=== PATIENT | female | born 1955 | race Caucasian/White ===

== ENCOUNTER → 2017-04-13 | Outpatient (CLI) | payer MEDICARE ==
--- NOTE | 2017-04-14 14:59 | MR ---
EXAMINATION TYPE: MR rumaine/lspine wo con DATE OF EXAM: 04/13/2017 1:50 PM COMPARISON: 12/23/2013 HISTORY: 61-year-old female with neck and low back pain. TECHNIQUE: Multiplanar, multisequence images of the cervical followed by the lumbar spine were obtain ed without IV contrast. FINDINGS: CERVICAL SPINE: No craniocervical junction abnormality, predental space widening, or prevertebral soft tissue swellin g. There is reversal of the normal cervical lordosis but with preserved alignment. Intervertebral discs are degenerated, desiccated, mild to moderately narrowed with large disc osteoph yte complexes. Corresponding ligamentum flavum thickening particularly at C4-C7 levels. Additional facet and uncovertebral joint degenerative changes present. Mild heterogeneity of marrow signal without suspicious bone marrow replacement. At C2-C3, mild facet degenerative change without spinal canal or neuroforaminal stenosis. At C3-C4, there is broad-based disc osteophyte complex with facet and uncovertebral joint degenerativ e change. This results in moderate right and mild left neuroforaminal stenosis with similar mild spin al canal stenosis. Minimal abutment of the ventral cord. At C4-C5, there is a large disc osteophyte complex with ligamentum flavum thickening as well as uncov ertebral joint and facet degenerative change. This results in a moderate bilateral neural foraminal s tenosis with moderate to severe spinal canal stenosis with a prominent indentation of both the dorsal and ventral cord, similar to prior. At C5-C6, discussed by complex with uncovertebral joint and facet degenerative change and ligamentum flavum thickening. There is abutment and indentation of both the dorsal and ventral cord with moderat e spinal canal stenosis. Moderate to severe left and mild to moderate right neuroforaminal stenosis. At C6/C7, disc ossified complex with vertebral joint and facet degenerative change as well as ligamen jay flavum thickening. Changes result in severe left and moderate right neuroforaminal stenosis with mild to moderate spinal canal stenosis, similar to prior. At C7-T1, there is facet degenerative change without spinal canal or neuroforaminal stenosis. No prevertebral or paravertebral soft tissue abnormality seen. No clear T2 cord signal abnormality. LUMBAR SPINE: Heterogeneous marrow signal without suspicious bone marrow replacement. There is ligamentum flavum fl avum thickening and facet degenerative change mid to lower lumbar spine. Alignment is maintained and vertebral body heights are preserved. Intervertebral discs are degenerated, desiccated, and show variable mild narrowing, more moderate in the upper lumbar spine. Disc bulging is present. Superior and inferior endplate Schmorl's node noted of T12. Conus medullaris is at the lower limits of normal opposite the L2 inferior endplate. At T12-L1, minimal right paracentral disc bulge without canal or foraminal stenosis. At L1-L2, and ligamentum flavum thickening without canal or foraminal stenosis. Minimal disc bulging is present. At L2-L3, there is diffuse disc bulge with ligamentum flavum thickening and mild facet degenerative c hange. There is slight indentation of the ventral thecal sac without significant spinal canal stenosi s. There is moderate bilateral neuroforaminal stenosis. At L3-L4, ligamentum flavum thickening and facet degenerative change. There is minimal bilateral infe rior foraminal narrowing without spinal canal stenosis. At L4-L5, diffuse disc bulge with ligamentum flavum thickening and facet degenerative change. Resulta nt moderate spinal canal stenosis with mild left greater than right neuroforaminal stenosis. At L5-S1, there is facet arthropathy with ligamentum flavum thickening and diffuse disc bulge. Change s result in mild right neuroforaminal stenosis without spinal canal stenosis. No prevertebral or paravertebral soft tissue abnormality seen. COMBINED IMPRESSION: CERVICAL SPINE: 1. Advanced disc/endplate degenerative change with uncovertebral joint and facet arthropathy as well as ligamentum flavum thickening, greatest from C4 through C7 levels. 2. There is overall moderate to severe spinal canal stenosis at C4-C5 with prominent indentation of b oth the dorsal and ventral cord, moderate at C5-C6, and mild to moderate at C6-C7. Mild at C3-C4. Ove rall canal stenoses are relatively similar to 2014. 3. Variable neuroforaminal stenoses as outlined above. 4. No suspicious myelopathic cord signal change. LUMBAR SPINE: 1. Moderate multilevel degenerative disc disease. Hypertrophic facet arthropathy and ligamentum flavu m thickening at multiple levels. 2. There is overall moderate narrowing of the spinal canal at L4-L5 with mild left greater than right neuroforaminal stenosis here. 3. At L2-L3, there is moderate bilateral neuroforaminal stenosis. Mild neural foraminal narrowing at L5-S1.
== END | disposition home or self-care (01) ==
LOC: RADMRIMAIN 12:42
PROVIDERS: ATTEND Psychiatry & Neurology Neurology
DX: M48.02 Spinal stenosis, cervical region (principal); M99.71 Connective tissue and disc stenosis of intervertebral foramina of cervical region; M46.92 Unspecified inflammatory spondylopathy, cervical region; M47.812 Spondylosis without myelopathy or radiculopathy, cervical region; M48.06 Spinal stenosis, lumbar region; M99.73 Connective tissue and disc stenosis of intervertebral foramina of lumbar region; M51.36 Other intervertebral disc degeneration, lumbar region; M46.96 Unspecified inflammatory spondylopathy, lumbar region; M48.8X6 Other specified spondylopathies, lumbar region; M24.28 Disorder of ligament, vertebrae; Z88.0 Allergy status to penicillin
CPT/HCPCS: 72141; 72148

== ENCOUNTER → 2017-06-12 | Outpatient (CLI) | payer MEDICARE ==
--- NOTE | 2017-06-13 08:43 | MM ---
Reason for exam: screening (asymptomatic). Last mammogram was performed 2 years and 2 months ago. History: Patient is postmenopausal. Benign left mammotome panel of the left breast, December 28, 2005. Physical Findings: A clinical breast exam by your physician is recommended on an annual basis and results should be correlated with mammographic findings. MG Screening Mammo w CAD Bilateral CC and MLO view(s) were taken. Prior study comparison: April 14, 2015, bilateral MG screening mammo w CAD. October 20, 2010, bilateral digital screening mammogram. The breast tissue is extremely dense which could obscure a lesion on mammography. Dense calcifications in the right breast, stable. Previous mammotome biopsy in the left breast. No significant changes when compared with prior studies. ASSESSMENT: Benign, BI-RAD 2 RECOMMENDATION: Routine screening mammogram of both breasts in 1 year.
== END | disposition home or self-care (01) ==
LOC: RADMAMWWP 15:22
PROVIDERS: ATTEND Internal Medicine
DX: Z12.31 Encounter for screening mammogram for malignant neoplasm of breast (principal)

== ENCOUNTER → 2019-07-15 | Outpatient (CLI) | payer MEDICARE ==
--- NOTE | 2019-07-17 07:29 | MM ---
Reason for exam: screening (asymptomatic). Last mammogram was performed 2 years and 1 month ago. History: Patient is postmenopausal. Benign left mammotome panel of the left breast, December 28, 2005. Physical Findings: A clinical breast exam by your physician is recommended on an annual basis and results should be correlated with mammographic findings. MG Screening Mammo w CAD Bilateral CC and MLO view(s) were taken. Prior study comparison: June 12, 2017, bilateral MG screening mammo w CAD. April 14, 2015, bilateral MG screening mammo w CAD. The breast tissue is extremely dense which could obscure a lesion on mammography. Previous mammotome biopsy in the left breast. No significant changes when compared with prior studies. ASSESSMENT: Benign, BI-RAD 2 RECOMMENDATION: Routine screening mammogram of both breasts in 1 year.
== END | disposition home or self-care (01) ==
LOC: RADMAMWWP 13:56
PROVIDERS: ATTEND Internal Medicine
DX: Z12.31 Encounter for screening mammogram for malignant neoplasm of breast (principal)
CPT/HCPCS: 77067

== ENCOUNTER → 2019-12-14 | Outpatient (CLI) | payer MEDICARE ==
--- NOTE | 2019-12-14 15:41 | US ---
EXAMINATION TYPE: US pelvis complete transvag DATE OF EXAM: 12/14/2019 COMPARISON: NONE CLINICAL HISTORY: R10.2 Pelvic pain. TECHNIQUE: Transvaginal (TV) and Transabdominal (TA) . Transabdominal sonographic images of the pel vis were acquired. Transvaginal sonographic images were medically necessary to better assess the fol lowing anatomy: Left ovary Date of LMP: Postmenopausal patient EXAM MEASUREMENTS: Uterus: 6.1 x 2.9 x 4.0 cm Endometrial Stripe: 0.3 cm Right Ovary: 1.9 x 1.0 x 1.0 cm Left Ovary: 5.2 x 3.3 x 3.1 cm 1. Uterus: Anteverted, hypoechoic lesion measuring 1.9 x 1.5 x 1.3 cm 2. Endometrium: wnl 3. Right Ovary: wnl 4. Left Ovary: enlarged, multiple cysts, innumerable calcifications 5. Bilateral Adnexa: wnl 6. Posterior cul-de-sac: wnl IMPRESSION: 1. Leiomyomatous change of the uterus. 2. Multiple left ovarian cysts. Calcifications noted as well which are nonspecific.
== END | disposition home or self-care (01) ==
LOC: RADUSWWP 14:33
PROVIDERS: ATTEND Internal Medicine
DX: N83.202 Unspecified ovarian cyst, left side (principal); N83.8 Other noninflammatory disorders of ovary, fallopian tube and broad ligament; D25.9 Leiomyoma of uterus, unspecified; Z88.0 Allergy status to penicillin
CPT/HCPCS: 76830; 76856

== ENCOUNTER 2020-08-27 14:48 | Emergency (ER) | payer MEDICARE ==
[2020-08-27 15:09] VITALS: TEMP 98.4
[2020-08-27] MEDS ORDERED: CIPROFLOXACIN HCL 500 MG TAB PO STA (15:31)
[2020-08-27] MEDS ORDERED: HYDROcodone/APAP 5-325MG 1 EACH TAB PO STA (15:34)
[2020-08-27] MEDS ORDERED: ACET/COD 300 MG/30 MG STARTER PACK 6 TAB BTL PO STA (17:01)
--- NOTE | 2020-08-27 17:05 | ED ---
General Adult HPI - General Chief complaint: ENT Stated complaint: ENT Time Seen by Provider: 08/27/20 15:13 Source: patient, RN notes reviewed, old records reviewed Mode of arrival: ambulatory Limitations: no limitations - History of Present Illness Initial comments: 64-year-old female patient presents to ED for evaluation of of abscess to a nterior aspect of left ear. Has been ongoing for 3 days. Patient reports that she had this before in the past. Also reports that she is having a little bit of mild headaches from this. She denies any fevers. Denies any other acute complaints. Systemic: Pt denies fatigue, fever/chills, rash. Pt denies weakness, night sweats, weight loss. Neuro: Pt denies headache, visual disturbances, syncope or pre-syncope. HEENT: Pt denies ocular discharge or irritation, rhinorrhea, pharyngitis or notable lymphadenopathy. Cardiopulmonary: Pt denies chest pain, SOB, heart palpitations, dyspnea on exert ion. Abdominal/GI: Pt denies abdominal pain, n/v/d. : Pt denies dysuria, burning w/ urination, frequency/urgency. Denies new onset urinary or bowel incontinence. MSK: Pt denies myalgia, loss of strength or function in extremities. Neuro: Pt denies new onset weakness, paresthesias. - Related Data Home Medications Medication Instructions Recorded Confirmed ALPRAZolam [Xanax] 0.5 mg PO TID PRN 04/19/15 04/21/15 HYDROcodone/APAP 10-325MG [Webster 1 each PO Q6H PRN 04/19/15 04/21/15 10] Morphine Sulfate [Morphine Sulfate 45 mg PO BID 04/19/15 04/21/15 ER] Previous Rx's Medication Instructions Recorded Ciprofloxacin HCl [Cipro] 500 mg PO Q12HR #20 day 08/27/20 Allergies Allergy/AdvReac Type Severity Reaction Status Date / Time Penicillins Allergy Unknown Verified 08/27/20 15:09 Childhood Review of Systems ROS Statement: Those systems with pertinent positive or pertinent negative responses have been documented in the HPI. ROS Other: All systems not noted in ROS Statement are negative. Past Medical History Past Medical History: No Reported History History of Any Multi-Drug Resistant Organisms: None Reported Additional Past Surgical History / Comment(s): ear surgery. neck. Past Psychological History: Anxiety, Depression Smoking Status: Current every day smoker Past Alcohol Use History: Rare Past Drug Use History: Marijuana General Exam - General Exam Comments Initial Comments: Constitutional: NAD, AOX3, Pt has pleasant affect. HEENT: NC/AT, trachea midline, neck supple, no lymphadenopathy. Posterior pharynx non erythematous, without exudates. 1x1 cm mildly fluctuant abscess to the anterior aspect of the left year. No cellulitis or streaking. Area clean incision drainage was attempted without any purulent drainage noted. TM pale marley bilaterally. Mucous membranes moist. Eyes PERRLA, EOM intact. There is no scleral icterus. No pallor noted. Cardiopulmonary: RRR, no murmurs, rubs or gallops, no JVD noted. Lungs CTAB in anterior and posterior gerber. No peripheral edema. Abdominal exam: Abdomen soft and non-distended. Abdomen non-tender to palpation in all 4 quadrants. Bowel sounds active in LLQ. No hepatosplenomegaly. No ecchymosis Neuro: CN II-XII intact. No nuchal rigidity. No raccon eyes, no marcelo sign, no hemotympanum. No cervical spinal tenderness. MSK Full active ROM in upper and lower extremities, 5/5 stregnth. Limitations: no limitations Course Vital Signs 08/27/20 08/27/20 15:06 17:10 Temperature 98.4 F Pulse Rate 100 80 Respiratory 20 16 Rate Blood Pressure 138/92 136/88 O2 Sat by Pulse 98 97 Oximetry Medical Decision Making - Medical Decision Making 64-year-old female patient proceeded for evaluation of left ear abscess. Patient vital signs are stable, afebrile. Physical exam displayed a approximately 1 x 1 cm Nacho fluctuant abscess. This was incised without any significant drainage. Patient was placed on ciprofloxacin and will be discharged with outpatient ENT follow-up. As well as primary care follow-up and return precautions. Case discussed and pt seen by Dr. John. Disposition Clinical Impression: Abscess Disposition: HOME SELF-CARE Condition: Stable Instructions (If sedation given, give patient instructions): Abscess Incision a nd Drainage (ED), Abscess (ED) Additional Instructions: Apply warm compresses to ear 3 times daily and use medication as prescribed. Follow up with ENT tomorrow. Return to ER with an worsening symptoms. Prescriptions: Ciprofloxacin HCl [Cipro] 500 mg PO Q12HR #20 day Is patient prescribed a controlled substance at d/c from ED?: No Referrals: Gregory Chicas MD [Primary Care Provider] - 1-2 days Joel Sanchez MD [STAFF PHYSICIAN] - 1-2 days Jose Elias Hernandez DO [Doctor of Osteopathic Medicine] - 1-2 days
[2020-08-27 17:14] VITALS: BP 136/88; PULSE 80; RESP 16
--- NOTE | 2020-08-28 10:00 | CDI ---
Dear Lyle Kim PA-C Please do addendum for Incision and drainage procedure note, required Thank you, Valeri Neil, Sand Operator If you have any questions, please contact Transplant Worker at [phone] [facility]
== END 2020-08-27 17:15 | disposition home or self-care (01) ==
LOC: EC 14:48
DX: H66.42 Suppurative otitis media, unspecified, left ear (principal); F41.9 Anxiety disorder, unspecified; F32.9 Major depressive disorder, single episode, unspecified; F17.200 Nicotine dependence, unspecified, uncomplicated; Z79.891 Long term (current) use of opiate analgesic; Z88.0 Allergy status to penicillin
CPT/HCPCS: 10060; 99283

== ENCOUNTER → 2021-09-04 | Outpatient (CLI) | payer MEDICARE ==
--- NOTE | 2021-09-05 12:35 | MM ---
Reason for exam: screening (asymptomatic). Last mammogram was performed 2 years and 2 months ago. History: Patient is postmenopausal. Benign left mammotome panel of the left breast, December 28, 2005. Took hormonal contraceptives for 4 years. Physical Findings: A clinical breast exam by your physician is recommended on an annual basis and results should be correlated with mammographic findings. MG 3D Screening Mammo W/Cad Bilateral CC and MLO view(s) were taken. Prior study comparison: July 15, 2019, bilateral MG screening mammo w CAD. June 12, 2017, bilateral MG screening mammo w CAD. April 14, 2015, bilateral MG screening mammo w CAD. The breast tissue is extremely dense which could obscure a lesion on mammography. There are benign appearing dystrophic calcifications in the right breast. Previous mammotome biopsy in the left breast. There is no discrete abnormality. ASSESSMENT: Benign, BI-RAD 2 RECOMMENDATION: Routine screening mammogram of both breasts in 1 year.
== END | disposition home or self-care (01) ==
LOC: RADMAMWWP 10:42
PROVIDERS: ATTEND Obstetrics & Gynecology
DX: Z12.31 Encounter for screening mammogram for malignant neoplasm of breast (principal); Z78.0 Asymptomatic menopausal state
CPT/HCPCS: 77063; 77067

== ENCOUNTER 2021-09-27 19:29 | Inpatient (IN) | payer MEDICARE ==
[2021-09-27] MEDS ORDERED: MORPHINE SULFATE 2 MG/ML SYRINGE IVP STA (19:32)
[2021-09-27] MEDS ORDERED: HEPARIN SODIUM 1,000 UN/ML (10ML VL) IV ONE (19:32)
[2021-09-27] MEDS ORDERED: SODIUM CHLORIDE 0.9% 1,000 ML IV STA (19:32)
[2021-09-27 19:48] LABS: Basophils # (A) 0.1 k/uL (0-0.2); Basophils % (A) 1 %; Eosinophils # (A) 0.2 k/uL (0-0.7); Eosinophils % (A) 1 %; HCT 42.8 % (34.0-46.0); HGB 14.8 gm/dL (11.4-16.0); Lymphocytes # (A) 4.1 k/uL (1.0-4.8); Lymphocytes % (A) 37 %; MCH 31.6 pg (25.0-35.0); MCHC 34.5 g/dL (31.0-37.0); MCV 91.7 fL (80.0-100.0); Mean Platelet Volume 7.5; Monocytes # (A) 0.5 k/uL (0-1.0); Monocytes % (A) 5 %; Neutrophils # (A) 5.7 k/uL (1.3-7.7); Neutrophils % (A) 52 %; Platelet Count 308 k/uL (150-450); RBC 4.66 m/uL (3.80-5.40); RDW 13.4 % (11.5-15.5)
[2021-09-27] MEDS ORDERED: NALOXONE 0.4 MG/ML 1 ML VIAL IV PRN (19:58)
[2021-09-27] MEDS ORDERED: VERAPAMIL 2.5 MG/ML 2 ML AMP ONE (19:59)
[2021-09-27] MEDS ORDERED: LIDOCAINE 1% INJ 10MG/ML (20 ML MDV) ONE (20:00)
[2021-09-27 20:03] LABS: INR 0.9 (<1.2); Prothrombin Time 9.4 sec (9.0-12.0)
[2021-09-27 20:04] LABS: Albumin 4.1 g/dL (3.5-5.0); Magnesium 2.3 mg/dL (1.6-2.3); Total Bilirubin 0.3 mg/dL (0.2-1.3); Total Protein 7.2 g/dL (6.3-8.2)
[2021-09-27] MEDS ORDERED: HEPARIN SODIUM 1,000 UN/ML (10ML VL) ONE (20:05)
[2021-09-27] MEDS ORDERED: MIDAZOLAM 2 MG/2 ML VIAL IVP ONE (20:08)
[2021-09-27] MEDS ORDERED: IV FLUID CONTINUATION 400 ML IV ONE (20:08)
[2021-09-27] MEDS ORDERED: LIDOCAINE 2% SYG (PF) 100 MG/5 ML IV ONE (20:08)
[2021-09-27] MEDS ORDERED: LIDOCAINE 1% INJ 10MG/ML (20 ML MDV) SQ ONE (20:08)
[2021-09-27] MEDS ORDERED: VERAPAMIL SYRINGE (5 MG/10 ML) INTRAARTER ONE (20:11)
[2021-09-27] MEDS ORDERED: TIROFIBAN BOLUS 12.5MG/250 ML BAG IV ONE (20:23)
[2021-09-27] MEDS ORDERED: TIROFIBAN 12.5MG-250ML NS 250 ML IV ONE (20:23)
[2021-09-27] MEDS ORDERED: NITROGLYCERIN 1000MCG/10ML SYRINGE INTRACORON ONE (20:30)
[2021-09-27] MEDS ORDERED: CLOPIDOGREL 75 MG TAB ONE (20:37)
[2021-09-27] MEDS ORDERED: IOPAMIDOL-370 100ML BTL INJ ONE (20:39)
[2021-09-27] MEDS ORDERED: CLOPIDOGREL 75 MG TAB PO ONE (20:42)
--- NOTE | 2021-09-27 20:45 | XR ---
EXAMINATION TYPE: XR chest 1V portable DATE OF EXAM: 09/27/2021 COMPARISON: NONE HISTORY: 65 years Female. STUDY INDICATION GIVEN: chest pain . TECHNIQUE: Upright portable AP chest radiograph IMPRESSION: There is a patchy right lower lobe opacity concerning for pneumonia in addition to mild interstitial edema.No pneumothorax or pleural effusion seen. There is mild cardiomegaly. Atherosclerotic calcifications are seen in the intrathoracic aorta. There is mild generalized osteopenia. Postsurgical changes seen in the lower cervical spine. No acute osseous abnormality seen.
[2021-09-27 21:06] LABS: Glucose,Whole Blood 96 mg/dL (75-99)
--- NOTE | 2021-09-27 21:09 | CONS ---
CONSULTATION DATE OF SERVICE: 09/27/2021 Mrs. Olga Shelton is a 65-year-old lady with history of smoking more than a pack, COPD, mild depression and unspecified neuropathy. She came into the hospital with 2 hours or less worth of chest pain, had inferior ST elevation with precordial ST depression. Patient was evaluated in the ER. A STEMI alert was called and I saw the patient in the labor contractor. At the time of my evaluation, she had a 5/10 chest pain, hemodynamically stable with inferior ST elevation. She has had chest pain on and off for the last couple of days as well. I advised prompt cardiac catheterization and proceeded to perform the procedure expeditiously. PAST MEDICAL HISTORY: Unremarkable for hypertension, diabetes or myocardial infarction or CVA. The patient is a smoker, has COPD, also has mild underlying depression. ALLERGIES: PENICILLIN. MEDICATIONS: Medications include trazodone, Celexa and Lyrica. PHYSICAL EXAMINATION: On examination, blood pressure 140/80, pulse rate is about 88 per minute, regular. HEENT unremarkable. Fundus was not examined by me. Neck is supple. No JVD. I do not hear a carotid bruit. There is no thyromegaly. Heart exam reveals S1, S2 heard normally. No rub, murmur or gallop. Lungs are clear. Abdomen is soft, nontender. Lower extremities reveal normal pulses. No edema. Central nervous system is grossly within normal limits. EKG revealed a normal sinus rhythm with inferior ST elevation and precordial ST depression suggestive of acute inferior ST-elevation SC. IMPRESSION: 1. Acute inferior ST-elevation myocardial infarction. 2. Smoking and chronic obstructive pulmonary disease. RECOMMENDATIONS: I advised prompt cardiac cath and PCI and proceeded to perform procedure expeditiously. MMODL / IJN: [id number] /
--- NOTE | 2021-09-27 21:22 | CC ---
CARDIAC CATHETERIZATION REPORT PROCEDURE: 1. Left heart catheterization and coronary angiography. 2. Percutaneous transluminal coronary angioplasty and stenting of mid right coronary artery with a drug-eluting stent in the setting of an acute inferior ST-elevation myocardial infarction with reperfusion accomplished in 52 minutes. PERFORMED BY: Dr. Annelise Epstein. Moderate conscious sedation time was 33 minutes. Patient was administered Versed. Oxygen saturation, hemodynamics and EKG were monitored closely. CLINICAL INFORMATION: Mrs. Olga Hood is a 65-year-old lady who smokes more than a pack a day, has COPD and also has history of some mild depression and some unspecified neuropathy. She came into the hospital with 2 hours' worth of chest pain and inferior ST elevation. She was evaluated in the emergency room. A STEMI alert was called and I saw the patient in the cardiac label designer. At the time of my evaluation, patient had a 5/10 pain and she still had inferior ST elevation with precordial ST depression. She was hemodynamically stable. PROCEDURE NOTE: Under local anesthesia and strict aseptic precautions, a 6-Barbadian introducer was placed in the right radial artery. I started out with a right Annalisa type guide catheter of 6-Barbadian caliber and went ahead and performed PTCA and intervention of the right coronary artery and then performed selective coronary angiography of the left system with a 3.5 left Annalisa type diagnostic catheter. I checked LV pressures with a right guide catheter but did not perform LV gram. The sheath was then taken out and a Vasc band applied as per protocol with saturation in the fingers of the right hand of 94%. The patient tolerated procedure well without complications. CARDIAC CATHETERIZATION FINDINGS: RIGHT CORONARY ARTERY: Dominant vessel has a mid lesion of about 99% with haziness and thrombus and distally beyond it there is another 70% lesion. There is a long diseased segment, after which the vessel bifurcates into PDA and PLV, both of which supply a sizable amount of myocardium. The PDA has a 40% ostial lesion. PLV is free of significant disease. This is a superdominant RCA with a 99% mid lesion. LEFT MAIN CORONARY ARTERY: This is a short patent vessel free of significant disease that immediately bifurcates into LAD and circumflex. LEFT ANTERIOR DESCENDING CORONARY ARTERY: Good-caliber vessel extends along the anterior wall, gives off a diagonal branch which has about a 40% narrowing. The mid LAD has a 40% to 45% narrowing with some bridging, but that does not appear to have any significant critical lesion. There is a 40% to 45% mid lesion with bridging in the LAD. The rest of the LAD is of large caliber and distribution, curves over the apex to supply the inferoapical portion of the left ventricle. LEFT POSTERIOR CIRCUMFLEX CORONARY ARTERY: Nondominant vessel gives off a small obtuse marginal proximally, another small obtuse marginal, and then distally gives off a large obtuse marginal, but before the large obtuse marginal there is about a 40% long narrowing and then the circumflex continues with another 40% narrowing distally, has mild diffuse disease. Circumflex therefore has two 40% lesions in the mid and distal portions and a large obtuse marginal free of significant disease. Left ventriculogram was not performed. FINAL IMPRESSION: This patient has a right-dominant system, normal filling pressures. The left ventricular end-diastolic pressure was about 10 mmHg without any gradient. The right coronary artery has a 99% stenosis with haziness and is the culprit lesion. Circumflex has two 40% lesions and LAD has a 45% mid lesion with bridging. RECOMMENDATIONS: I recommended PCI of RCA that was performed expeditiously. CADDIE SUPERVISOR PROCEDURE DETAILS: I used a standard right Annalisa guide catheter of 6-Barbadian caliber. A run-through wire was used to cross the lesion. A 2.5 caliber 15 mm Trek balloon was used to pre-dilate the lesion. I then deployed a 23 mm long 3.25 caliber Xience stent at 12 atmospheres. Patient had chest pain and inferior ST elevation. Excellent angiographic result was achieved without complication. Patient tolerated the procedure well without complication. The details and results were discussed with the patient, but there was no family available. Reperfusion was accomplished in 52 minutes. Moderate conscious sedation time was 33 minutes. Excellent result was achieved. MMODL / IJN: [id number] /
[2021-09-27] MEDS ORDERED: TIROFIBAN 12.5MG-250ML NS 250 ML IV SCH ×2 (21:45→22:30)
--- NOTE | 2021-09-27 22:29 | ED ---
General Adult HPI - General Chief complaint: Chest Pain Stated complaint: STEMI Time Seen by Provider: 09/27/21 19:30 Source: patient, EMS, RN notes reviewed, old records reviewed Mode of arrival: EMS Limitations: no limitations - History of Present Illness Initial comments: Patient is a 65-year-old female who presents emergency Department with chest pa in. EMS transferred the patient's EKG on the way to the hospital which revealed an inferior wall STEMI. I activated the brine room laborer prior to arrival. The patient arrived, she was able to inform you that she's been having chest pain for several hours and thought was indigestion. She describes it as substernal, pressure sharp chest pain. She is Sitting is approximately 6-8 out of 10 at this time. Endorses mild shortness of breath. Denies any nausea, vomiting, abdominal pain. His no other acute complaints at this time. His no cardiac history. Denies any recent Covid exposures or sick contacts. Denies any fevers, chills, sick contacts. Patient presents over concern for chest pain. - Related Data Home Medications Medication Instructions Recorded Confirmed Citalopram Hydrobromide [CeleXA] 40 mg PO HS 09/27/21 09/27/21 Pregabalin [Lyrica] 75 mg PO HS 09/27/21 09/27/21 traZODone HCL [Desyrel] 50 mg PO HS 09/27/21 09/27/21 Allergies Allergy/AdvReac Type Severity Reaction Status Date / Time Penicillins Allergy Unknown Verified 09/27/21 19:48 Childhood Review of Systems ROS Statement: Those systems with pertinent positive or pertinent negative responses have been documented in the HPI. Review of Systems: CONST: Denies fever EYES: Denies blurry vision ENT: Denies nasal congestion C/V: Endorses chest pain RESP: Denies shortness of breath GI: Denies abdominal pain : Denies dysuria SKIN: Denies rash. MSK: Denies joint pain. NEURO: Denies headache ROS Other: All systems not noted in ROS Statement are negative. Past Medical History Past Medical History: Fibromyalgia, Osteoarthritis (OA) Additional Past Medical History / Comment(s): arthritis History of Any Multi-Drug Resistant Organisms: None Reported Additional Past Surgical History / Comment(s): neck surgery Past Anesthesia/Blood Transfusion Reactions: No Reported Reaction Past Psychological History: Anxiety, Depression Smoking Status: Current every day smoker Past Alcohol Use History: None Reported, Rare Past Drug Use History: Marijuana General Exam - General Exam Comments Initial Comments: General: Appears in mild to moderate distress secondary to chest pain. HEAD: Normal with no signs of head trauma. EYES: PERRLA, EOMI, conjunctiva normal, no discharge. ENT: Hearing grossly intact, normal oropharynx. RESPIRATORY: Clear breath sounds bilaterally. No wheezes, rales, or rhonchi. C/V: Regular rate and rhythm. S1 and S2 auscultated, no edema, peripheral pulses 2+ and intact throughout ABD: Abd is soft, nontender, nondistended EXT: Normal range of motion, no obvious deformity SKIN: No rashes or lesions observed on exposed skin. NEURO: Alert and oriented 4. No focal sensory strength deficits. Limitations: no limitations Course Vital Signs 09/27/21 09/27/21 09/27/21 19:38 19:50 21:30 Temperature 98.0 F Pulse Rate 64 64 66 Respiratory 18 18 17 Rate Blood Pressure 144/84 147/82 137/83 O2 Sat by Pulse 99 99 97 Oximetry 09/27/21 22:00 Temperature Pulse Rate 71 Respiratory 18 Rate Blood Pressure 141/79 O2 Sat by Pulse 97 Oximetry Procedures - [place] Protocol (Time Out) Patient Identification (2 identifiers required): Chart, Verbal, Arm Band, Name, Birthdate Patient/Legal Sander Operator has Confirmed: Identity, Procedure, Consent Site Marked: Not Applicable Medical Decision Making - Medical Decision Making Based on the patient's presentation and physical exam, as well as the EKG that was sent before him, patient is having a STEMI. tailings dam laborer was activated prior to arrival. I spoke with Dr. Epstein over the phone who was in agreement the plan for cardiac catheterization. Patient is likely having an inferior wall IA. Nitro will be avoided. Patient already received aspirin by EMS [address] Epstein requested that I also by the patient with 4000 units of heparin. tailings dam laborer was called in. Patient was in Mr. morphine for chest pain. She was kept on nasal cannula oxygen for comfort as well. She was started on 125 mL/hr of saline. Patient was taken to [facility] in critical condition. Patient's EKG showed an inferior wall IA. Chest x-ray revealed patchy right lower lobe opacity that may be a pneumonia or interstitial edema, however patient has no respiratory complaints at this time. Lavatory studies returned after the patient taken to cardiac catheterization. The remarkable for a mild leukocytosis of 11.0. Patient also has a elevated creatinine of 1.25 which is above her baseline. Troponin is negative. Following cardiac catheterization, patient will be admitted to ICU in serious condition. I spoke with the admitting team, mid-level provider Efrain who accepted the patient. - Lab Data Result diagrams: 09/27/21 19:31 09/27/21 19:31 Lab Results 09/27/21 09/27/21 09/27/21 Range/Units 19:31 19:31 19:31 WBC 11.0 H (3.8-10.6) k/uL RBC 4.66 (3.80-5.40) m/uL Hgb 14.8 (11.4-16.0) gm/dL Hct 42.8 (34.0-46.0) % MCV 91.7 (80.0-100.0) fL MCH 31.6 (25.0-35.0) pg MCHC 34.5 (31.0-37.0) g/dL RDW 13.4 (11.5-15.5) % Plt Count 308 (150-450) k/uL MPV 7.5 Neutrophils % 52 % Lymphocytes % 37 % Monocytes % 5 % Eosinophils % 1 % Basophils % 1 % Neutrophils # 5.7 (1.3-7.7) k/uL Lymphocytes # 4.1 (1.0-4.8) k/uL Monocytes # 0.5 (0-1.0) k/uL Eosinophils # 0.2 (0-0.7) k/uL Basophils # 0.1 (0-0.2) k/uL PT 9.4 (9.0-12.0) sec INR 0.9 (<1.2) APTT 22.0 (22.0-30.0) sec Sodium 140 (137-145) mmol/L Potassium 4.0 (3.5-5.1) mmol/L Chloride 108 H (98-107) mmol/L Carbon Dioxide 25 (22-30) mmol/L Anion Gap 7 mmol/L BUN 21 H (7-17) mg/dL Creatinine 1.25 H (0.52-1.04) mg/dL Est GFR (CKD-EPI)AfAm 52 (>60 ml/min/1.73 sqM) Est GFR (CKD-EPI)NonAf 45 (>60 ml/min/1.73 sqM) Glucose 89 (74-99) mg/dL POC Glucose (mg/dL) (75-99) mg/dL POC Glu Shop Fitter ID Calcium 10.0 (8.4-10.2) mg/dL Magnesium 2.3 (1.6-2.3) mg/dL Total Bilirubin 0.3 (0.2-1.3) mg/dL AST 31 (14-36) U/L ALT 18 (4-34) U/L Alkaline Phosphatase 80 (38-126) U/L Troponin I (0.000-0.034) ng/mL Total Protein 7.2 (6.3-8.2) g/dL Albumin 4.1 (3.5-5.0) g/dL 09/27/21 09/27/21 Range/Units 19:31 21:05 WBC (3.8-10.6) k/uL RBC (3.80-5.40) m/uL Hgb (11.4-16.0) gm/dL Hct (34.0-46.0) % MCV (80.0-100.0) fL MCH (25.0-35.0) pg MCHC (31.0-37.0) g/dL RDW (11.5-15.5) % Plt Count (150-450) k/uL MPV Neutrophils % % Lymphocytes % % Monocytes % % Eosinophils % % Basophils % % Neutrophils # (1.3-7.7) k/uL Lymphocytes # (1.0-4.8) k/uL Monocytes # (0-1.0) k/uL Eosinophils # (0-0.7) k/uL Basophils # (0-0.2) k/uL PT (9.0-12.0) sec INR (<1.2) APTT (22.0-30.0) sec Sodium (137-145) mmol/L Potassium (3.5-5.1) mmol/L Chloride (98-107) mmol/L Carbon Dioxide (22-30) mmol/L Anion Gap mmol/L BUN (7-17) mg/dL Creatinine (0.52-1.04) mg/dL Est GFR (CKD-EPI)AfAm (>60 ml/min/1.73 sqM) Est GFR (CKD-EPI)NonAf (>60 ml/min/1.73 sqM) Glucose (74-99) mg/dL POC Glucose (mg/dL) 96 (75-99) mg/dL POC Glu Shop Fitter ID Josee Wright Calcium (8.4-10.2) mg/dL Magnesium (1.6-2.3) mg/dL Total Bilirubin (0.2-1.3) mg/dL AST (14-36) U/L ALT (4-34) U/L Alkaline Phosphatase (38-126) U/L Troponin I <0.012 (0.000-0.034) ng/mL Total Protein (6.3-8.2) g/dL Albumin (3.5-5.0) g/dL - EKG Data -: EKG Interpreted by Me EKG Comments: 12-lead Electrocardiogram Interpretation Note EKG was reviewed and interpreted by myself. 12-lead ECG performed at 1930 is interpreted by me as revealing normal sinus rhythm at a rate of 70 beats per minute. [place] is normal. NM interval is 180 ms, QRS duration 74 ms, QTc is [address] segment elevations in lead 2, 3, aVF as well as reciprocal depressions in aVL, V2, V3 and mildly in V1. This is in the inferior distribution.. R wave progression across the precordium was satisfactory. By my interpretation, this EKG is concerning for an acute STEMI in the inferior wall.. Disposition Clinical Impression: ST elevation myocardial infarction (STEMI) Disposition: ADMITTED IP TO THIS HOSP Condition: Critical Referrals: Gregory Chicas MD [Primary Care Provider] - 1-2 days
[2021-09-27] MEDS: METOPROLOL TARTRATE 25 MG TAB PO SCH (22:34)
[2021-09-27] MEDS: SODIUM CHLORIDE 0.9% 1,000 ML IV SCH (22:35)
[2021-09-27] MEDS: ATORVASTATIN 40 MG TAB PO SCH (22:35)
[2021-09-27] MEDS: NICOTINE 14MG/24HR PATCH TRANSDERM SCH (22:35)
[2021-09-27] MEDS: ALPRAZolam 0.25 MG TAB PO PRN (22:42)
[2021-09-27] MEDS: TEMAZEPAM 15 MG CAP PO PRN (22:42)
[2021-09-28 05:41] LABS: Basophils # (A) 0.1 k/uL (0-0.2); Basophils % (A) 1 %; Eosinophils # (A) 0.2 k/uL (0-0.7); Eosinophils % (A) 1 %; HCT 37.3 % (34.0-46.0); HGB 12.4 gm/dL (11.4-16.0); Lymphocytes # (A) 3.6 k/uL (1.0-4.8); Lymphocytes % (A) 26 %; MCH 31.5 pg (25.0-35.0); MCHC 33.2 g/dL (31.0-37.0); MCV 94.7 fL (80.0-100.0); Mean Platelet Volume 7.8; Monocytes # (A) 0.6 k/uL (0-1.0); Monocytes % (A) 5 %; Neutrophils # (A) 8.8 k/uL (1.3-7.7); Neutrophils % (A) 64 %; Platelet Count 236 k/uL (150-450); RBC 3.94 m/uL (3.80-5.40); RDW 13.1 % (11.5-15.5); WBC 13.7 k/uL (3.8-10.6)
[2021-09-28 05:59] LABS: Calcium 9.2 mg/dL (8.4-10.2); Potassium 4.4 mmol/L (3.5-5.1)
[2021-09-28] MEDS: CLOPIDOGREL 75 MG TAB PO SCH (08:32)
[2021-09-28] MEDS: METOPROLOL TARTRATE 25 MG TAB PO SCH ×2 (08:32→20:14)
[2021-09-28] MEDS: ATORVASTATIN 40 MG TAB PO SCH (08:32)
[2021-09-28] MEDS: NICOTINE 14MG/24HR PATCH TRANSDERM SCH (08:32)
[2021-09-28] MEDS: LOSARTAN 25 MG TAB PO SCH (08:32)
[2021-09-28] MEDS: ASPIRIN 81 MG PO SCH (08:32)
--- NOTE | 2021-09-28 09:10 | P.PN ---
Subjective HISTORY OF PRESENTING ILLNESS This is a pleasant 65-year-old female with history of tobacco abuse fibromyalgia anxiety and family history of coronary artery disease who presented last night with chest pain and was found to have inferior STEMI. Patient underwent emergency heart catheterization with PCI of the RCA and has done well since that time. Denies any chest pain or pressure. No shortness breath. Blood pressure mildly elevated and she was started on losartan as well as metoprolol. PHYSICAL EXAMINATION Vital signs reviewed. CONSTITUTIONAL: No apparent distress. HEENT: Head is normocephalic. Pupils are equal, round. Sclerae anicteric. Mucous membranes of the mouth are moist. No JVD. No carotid bruit. CHEST EXAMINATION: Lungs are clear to auscultation. No chest wall tenderness is noted on palpation or with deep breathing. HEART EXAMINATION: Regular rate and rhythm. S1, S2 heard. No murmurs, gallops or rub. ABDOMEN: Soft, nontender. Positive bowel sounds. EXTREMITIES: 2+ peripheral pulses, no lower extremity edema and no calf tenderness. NEUROLOGIC EXAMINATION: Patient is awake, alert and oriented x3. ASSESSMENT 1. Inferior STEMI status post PCI 2. Family history of coronary artery disease 3. Hypertension 4. Tobacco abuse 5. Hyperlipidemia PLAN Continue dual antiplatelets for 12 months. Continue metoprolol and losartan added today. Monitor blood pressure. Continue Lipitor. Check 2-D echo. Further recommendations to follow. Objective - Vital Signs Vital signs: Vital Signs Temp 98.2 F 09/28/21 08:00 Pulse 70 09/28/21 08:00 Resp 10 L 09/28/21 08:00 BP 154/82 09/28/21 08:00 Pulse Ox 96 09/28/21 08:00 Intake & Output 09/27/21 09/28/21 09/28/21 18:59 06:59 18:59 Intake Total 960 75 Output Total 950 Balance 10 75 Weight 56.4 kg Intake: IV 960 75 Sodium Chloride 0.9% 1, 750 75 000 ml @ 75 mls/hr IV . [id number] HOLLIS Rx#:[id number] Output: Urine 950 - Labs CBC & Chem 7: 09/28/21 05:17 09/28/21 05:17 Labs: Abnormal Lab Results - Last 24 Hours (Table) 09/27/21 09/27/21 09/27/21 Range/Units 19:31 19:31 22:11 WBC 11.0 H (3.8-10.6) k/uL Neutrophils # (1.3-7.7) k/uL Chloride 108 H (98-107) mmol/L Carbon Dioxide (22-30) mmol/L BUN 21 H (7-17) mg/dL Creatinine 1.25 H (0.52-1.04) mg/dL Troponin I 2.500 H* (0.000-0.034) ng/mL 09/28/21 09/28/21 09/28/21 Range/Units 05:17 05:17 05:17 WBC 13.7 H (3.8-10.6) k/uL Neutrophils # 8.8 H (1.3-7.7) k/uL Chloride 114 H (98-107) mmol/L Carbon Dioxide 21 L (22-30) mmol/L BUN 20 H (7-17) mg/dL Creatinine 1.20 H (0.52-1.04) mg/dL Troponin I 8.210 H* (0.000-0.034) ng/mL
--- NOTE | 2021-09-28 11:36 | P.HPIM ---
History of Present Illness Patient is a 63-year-old the female with a nicotine use history came in with compensative chest and found to have ST elevation microinfarction in the inferior leads that is Arturo to in lead 3 patient underwent cardiac catheterization and stent to RCA. Patient is chest pain-free at this time. Patient the serum creatinine is 1. which will be monitored patient is presently on IV fluids and because of which patient is having bit of hyperchloremia. Patient troponins went up to as high as 8.2. Patient is chest pain-free at this time. She is a presently on a dual antiplatelet therapy metoprolol losartan and echocardiogram is pending at this time. Patient is presently not in heart failure. REVIEW OF SYSTEMS: CONSTITUTIONAL: No fever, no malaise, no fatigue. HEENT: No recent visual problems or hearing problems. Denied any sore throat. CARDIOVASCULAR: No chest pain, orthopnea, PND, no palpitations, no syncope. PULMONARY: No shortness of breath, no cough, no hemoptysis. GASTROINTESTINAL: No diarrhea, no nausea, no vomiting, no abdominal pain. NEUROLOGICAL: No headaches, no weakness, no numbness. HEMATOLOGICAL: Denies any bleeding or petechiae. GENITOURINARY: Denies any burning micturition, frequency, or urgency. MUSCULOSKELETAL/RHEUMATOLOGICAL: Denies any joint pain, swelling, or any muscle pain. ENDOCRINE: Denies any polyuria or polydipsia. The rest of the 14-point review of systems is negative. PHYSICAL EXAMINATION: GENERAL: The patient is alert and oriented x3, not in any acute distress. Well developed, well nourished. HEENT: Pupils are round and equally reacting to light. EOMI. No scleral icterus. No conjunctival pallor. Normocephalic, atraumatic. No pharyngeal erythema. No thyromegaly. CARDIOVASCULAR: S1 and S2 present. No murmurs, rubs, or gallops. PULMONARY: Chest is clear to auscultation, no wheezing or crackles. ABDOMEN: Soft, nontender, nondistended, normoactive bowel sounds. No palpable organomegaly. MUSCULOSKELETAL: No joint swelling or deformity. EXTREMITIES: No cyanosis, clubbing, or pedal edema. NEUROLOGICAL: Gross neurological examination did not reveal any focal deficits. SKIN: No rashes. Assessment and plan -ST elevation microinfarction status post stenting to RCA. Patient is an above- mentioned medications. Pending echocardiogram -Noniron gap metabolic acidosis secondary to hyperchloremia which is again secondary to IV fluids which although will be continued for now as her creatinine is 1.2 -Mild acute renal failure may be prerenal azotemia, kidney function closely monitored. Baseline creatinine around 0.9. Because of the time and this is not contrast nephropathy -Leukocytosis reactive secondary to microinfarction next and-hypertension -Hyperlipidemia DVT prophylaxis: Early ambulation Past Medical History Past Medical History: Fibromyalgia, Osteoarthritis (OA) Additional Past Medical History / Comment(s): arthritis History of Any Multi-Drug Resistant Organisms: None Reported Additional Past Surgical History / Comment(s): neck surgery Past Anesthesia/Blood Transfusion Reactions: No Reported Reaction Past Psychological History: Anxiety, Depression Smoking Status: Current every day smoker Past Alcohol Use History: None Reported, Rare Past Drug Use History: Marijuana - Past Family History Mother History Unknown: Yes Family Medical History: Coronary Artery Disease (CAD) Father History Unknown: Yes Family Medical History: Myocardial Infarction (GA) Medications and Allergies Home Medications Medication Instructions Recorded Confirmed Type Citalopram Hydrobromide [CeleXA] 40 mg PO HS 09/27/21 09/27/21 History Pregabalin [Lyrica] 75 mg PO HS 09/27/21 09/27/21 History traZODone HCL [Desyrel] 50 mg PO HS 09/27/21 09/27/21 History Allergies Allergy/AdvReac Type Severity Reaction Status Date / Time Penicillins Allergy Unknown Verified 09/27/21 19:48 Childhood Physical Exam Vitals: Vital Signs Temp Pulse Resp BP Pulse Ox 09/28/21 10:00 70 17 148/91 96 09/28/21 09:00 70 21 139/77 09/28/21 08:00 98.2 F 70 10 L 154/82 96 09/28/21 07:00 65 18 94 L 09/28/21 06:00 60 16 142/99 94 L 09/28/21 05:00 61 23 142/85 94 L 09/28/21 04:00 98.0 F 63 20 117/74 96 09/28/21 03:00 61 16 124/81 94 L 09/28/21 02:00 63 23 118/80 96 09/28/21 01:00 76 18 136/73 95 09/28/21 00:00 98.9 F 75 12 142/69 95 09/27/21 23:30 80 18 142/69 96 09/27/21 23:00 79 18 155/70 95 09/27/21 22:30 75 141/82 94 L 09/27/21 22:07 16 09/27/21 22:00 71 18 141/79 97 09/27/21 21:30 66 17 137/83 97 09/27/21 19:50 64 18 147/82 99 09/27/21 19:38 98.0 F 64 18 144/84 99 Intake and Output 09/27/21 09/28/21 09/28/21 22:59 06:59 14:59 Intake Total 360 600 150 Output Total 950 200 Balance 360 -350 -50 Intake: IV 360 600 150 Sodium Chloride 0.9% 1, 150 600 150 000 ml @ 75 mls/hr IV . [id number] HOLLIS Rx#:[id number] Output: Urine 950 200 Other: # Bowel Movements 1 Weight 58.7 kg 56.4 kg Results CBC & Chem 7: 09/28/21 05:17 09/28/21 05:17 Labs: Abnormal Lab Results - Last 24 Hours (Table) 09/27/21 09/27/21 09/27/21 Range/Units 19:31 19:31 22:11 WBC 11.0 H (3.8-10.6) k/uL Neutrophils # (1.3-7.7) k/uL Chloride 108 H (98-107) mmol/L Carbon Dioxide (22-30) mmol/L BUN 21 H (7-17) mg/dL Creatinine 1.25 H (0.52-1.04) mg/dL Troponin I 2.500 H* (0.000-0.034) ng/mL 09/28/21 09/28/21 09/28/21 Range/Units 05:17 05:17 05:17 WBC 13.7 H (3.8-10.6) k/uL Neutrophils # 8.8 H (1.3-7.7) k/uL Chloride 114 H (98-107) mmol/L Carbon Dioxide 21 L (22-30) mmol/L BUN 20 H (7-17) mg/dL Creatinine 1.20 H (0.52-1.04) mg/dL Troponin I 8.210 H* (0.000-0.034) ng/mL Thrombosis Risk Factor Assmnt - Choose All That Apply Each Factor Represents 1 point: Acute GA Each Risk Factor Represents 2 Points: Age 61-74 years Thrombosis Risk Factor Assessment Total Risk Factor Score: 3 Thrombosis Risk Factor Assessment Level: Moderate Risk
--- NOTE | 2021-09-28 12:00 | ECHOF ---
Referral Reason:re: STEMI MEASUREMENTS -------- HEIGHT: 157.5 cm WEIGHT: 56.2 kg BP: RVIDd: 2.3 cm (< 3.3) IVSd: 1.8 cm (0.6 - 1.1) LVIDd: 2.9 cm (3.9 - 5.3) LVPWd: 1.6 cm (0.6 - 1.1) IVSs: 2.5 cm LVIDs: 1.9 cm LVPWs: 2.1 cm LAESV Index (A-L): 28.50 ml/m Ao Diam: 3.0 cm (2.0 - 3.7) AV Cusp: 1.6 cm (1.5 - 2.6) LA Diam: 3.1 cm (2.7 - 3.8) MV EXCURSION: 12.364 mm (> 18.000) MV EF SLOPE: 52 mm/s (70 - 150) EPSS: 0.6 cm MV E Geronimo: 0.55 m/s MV DecT: 267 ms MV A [place]: 0.91 m/s MV E/A Ratio: 0.60 RAP: 5.00 mmHg RVSP: 16.30 mmHg FINDINGS -------- This was a technically good study. The left ventricular size is normal. There is severe concentric left ventricular hypertrophy. Ove rall left ventricular systolic function is normal with, an EF between 55 - 60 %. The diastolic fill ing pattern is normal for the age of the patient 11.81. The right ventricle is normal in size. The left atrial size is normal. Normal LA size by volume 22+/-6 ml/m2. The right atrial size is normal. Aortic valve is trileaflet and is mildly thickened. The mitral valve is normal. The mitral valve leaflets are mildly thickened. Mild mitral regurgita tion is present. The tricuspid valve appears structurally normal. Mild tricuspid regurgitation present. Right vent ricular systolic pressure is normal at < 35 mmHg. There is no pulmonic regurgitation present. The aortic root size is normal. Normal inferior vena cava with normal inspiratory collapse consistent with estimated right atrial pre ssure of 5 mmHg. There is no pericardial effusion. CONCLUSIONS -------- 1. The left ventricular size is normal. 2. There is severe concentric left ventricular hypertrophy. 3. Overall left ventricular systolic function is normal with, an EF between 55 - 60 %. 4. The diastolic filling pattern is normal for the age of the patient 11.81 5. Aortic valve is trileaflet and is mildly thickened. 6. The mitral valve leaflets are mildly thickened. 7. Mild mitral regurgitation is present. 8. Mild tricuspid regurgitation present. 9. There is no pericardial effusion. CLASSICS PROFESSOR: Davina Adkins RDCS
[2021-09-28] MEDS: SODIUM CHLORIDE 0.9% 1,000 ML IV SCH (14:22)
[2021-09-28] MEDS: TEMAZEPAM 15 MG CAP PO PRN (20:14)
[2021-09-28] MEDS: ALPRAZolam 0.25 MG TAB PO PRN (20:14)
[2021-09-29] MEDS: NICOTINE 14MG/24HR PATCH TRANSDERM SCH (09:26)
[2021-09-29] MEDS: ATORVASTATIN 40 MG TAB PO SCH (09:26)
[2021-09-29] MEDS: METOPROLOL TARTRATE 25 MG TAB PO SCH (09:26)
[2021-09-29] MEDS: CLOPIDOGREL 75 MG TAB PO SCH (09:27)
[2021-09-29] MEDS: LOSARTAN 25 MG TAB PO SCH (09:27)
[2021-09-29] MEDS: ASPIRIN 81 MG PO SCH (09:27)
--- NOTE | 2021-09-29 10:21 | P.PN ---
Subjective Patient is a 63-year-old the female with a nicotine use history came in with compensative chest and found to have ST elevation microinfarction in the inferior leads that is Arturo to in lead 3 patient underwent cardiac catheterization and stent to RCA. Patient is chest pain-free at this time. Patient the serum creatinine is 1. which will be monitored patient is presently on IV fluids and because of which patient is having bit of hyperchloremia. Patient troponins went up to as high as 8.2. Patient is chest pain-free at this time. She is a presently on a dual antiplatelet therapy metoprolol losartan and echocardiogram is pending at this time. Patient is presently not in heart failure. 09/29/2021 Patient is clinically doing well wanted to go home discuss with cardiology the recommending one more day of monitoring considering his non-ST elevation AK. Constitutional: Denied any fatigue denied any fever. Cardio vascular: denied any chest pain, palpitations Gastrointestinal denied any nausea vomiting Pulmonary: Denied any shortness of breath cough Neurologic denied any new focal deficits All inpatient medications were reviewed and appropriate changes in these medications as dictated in the interval history and assessment and plan. PHYSICAL EXAMINATION: GENERAL: The patient is alert and oriented x3, not in any acute distress. Well developed, well nourished. HEENT: Pupils are round and equally reacting to light. EOMI. No scleral icterus. No conjunctival pallor. Normocephalic, atraumatic. No pharyngeal erythema. No thyromegaly. CARDIOVASCULAR: S1 and S2 present. No murmurs, rubs, or gallops. PULMONARY: Chest is clear to auscultation, no wheezing or crackles. ABDOMEN: Soft, nontender, nondistended, normoactive bowel sounds. No palpable organomegaly. MUSCULOSKELETAL: No joint swelling or deformity. EXTREMITIES: No cyanosis, clubbing, or pedal edema. NEUROLOGICAL: Gross neurological examination did not reveal any focal deficits. SKIN: No rashes. Assessment and plan -ST elevation myocardial infarction status post stenting to RCA. Patient is an above-mentioned medications. Exam showed normal ejection fraction -Nonanion gap metabolic acidosis secondary to hyperchloremia -Mild acute renal failure may be prerenal azotemia, kidney function closely monitored. Baseline creatinine around 0.9. Present creatinine is 1. repeat BMP from today morning is pending -Leukocytosis reactive secondary to myocardial infarction -hypertension -Hyperlipidemia DVT prophylaxis: Early ambulation Objective - Vital Signs Vital signs: Vital Signs Temp 97.9 F 09/29/21 09:00 Pulse 61 09/29/21 09:00 Resp 16 09/29/21 09:00 BP 143/95 09/29/21 09:00 Pulse Ox 96 09/29/21 09:00 Intake & Output 09/28/21 09/29/21 09/29/21 18:59 06:59 18:59 Intake Total 225 300 Output Total 200 400 700 Balance 25 -100 -700 Weight 58.7 kg Intake: IV 225 0 Sodium Chloride 0.9% 1, 225 0 000 ml @ 75 mls/hr IV . [id number] HOLLIS Rx#:[id number] Oral 300 Output: Urine 200 400 700 Other: # Voids 1 # Bowel Movements 1 - Labs CBC & Chem 7: 09/28/21 05:17 09/28/21 05:17
[2021-09-29 12:45] VITALS: BP 141/79; PULSE 72; RESP 18; TEMP 97.8
--- NOTE | 2021-09-29 21:09 | P.PN ---
Subjective HISTORY OF PRESENTING ILLNESS This is a pleasant 65-year-old female with history of tobacco abuse fibromyalgia anxiety and family history of coronary artery disease who presented last night with chest pain and was found to have inferior STEMI. Patient underwent emergency heart catheterization with PCI of the RCA and has done well since that time. Denies any chest pain or pressure. No shortness breath. Blood pressure mildly elevated and she was started on losartan as well as metoprolol. 09/29 Patient seen and examined. Patient denies any chest pain or pressure. Anxious to go home. No bleeding. PHYSICAL EXAMINATION Vital signs reviewed. CONSTITUTIONAL: No apparent distress. HEENT: Head is normocephalic. Pupils are equal, round. Sclerae anicteric. Mucous membranes of the mouth are moist. No JVD. No carotid bruit. CHEST EXAMINATION: Lungs are clear to auscultation. No chest wall tenderness is noted on palpation or with deep breathing. HEART EXAMINATION: Regular rate and rhythm. S1, S2 heard. No murmurs, gallops or rub. ABDOMEN: Soft, nontender. Positive bowel sounds. EXTREMITIES: 2+ peripheral pulses, no lower extremity edema and no calf tenderness. NEUROLOGIC EXAMINATION: Patient is awake, alert and oriented x3. ASSESSMENT 1. Inferior STEMI status post PCI 2. Family history of coronary artery disease 3. Hypertension 4. Tobacco abuse 5. Hyperlipidemia PLAN Continue dual antiplatelets for 12 months. Continue metoprolol and losartan. Appears stable for discharge tonight which will be 48 hrs in hospital. Objective - Vital Signs Vital signs: Vital Signs Temp 97.8 F 09/29/21 12:00 Pulse 72 09/29/21 12:00 Resp 18 09/29/21 12:00 BP 141/79 09/29/21 12:00 Pulse Ox 95 09/29/21 12:00 Intake & Output 09/29/21 09/29/21 09/30/21 06:59 18:59 06:59 Intake Total 300 Output Total 400 700 Balance -100 -700 Weight 58.7 kg Intake: IV 0 Sodium Chloride 0.9% 1, 0 000 ml @ 75 mls/hr IV . [id number] HOLLIS Rx#:[id number] Oral 300 Output: Urine 400 700 Other: # Voids 1 - Labs CBC & Chem 7: 09/28/21 05:17 09/28/21 05:17
--- NOTE | 2021-09-29 22:19 | P.DS ---
Providers Date of admission: 09/27/21 19:58 Attending physician: Adele Neil Consults: 09/27/21 19:40 Consult Physician Stat Consulting Provider: Topher Epstein Consult Reason/Comments: STEMI, inferior wall Do you want consulting provider notified?: Already Contacted Primary care physician: Aviva Jenkins Hospital Course: Final Diagnosis -ST elevation myocardial infarction status post stenting to RCA. Exam showed normal ejection fraction -Nonanion gap metabolic acidosis secondary to hyperchloremia -Mild acute renal failure may be prerenal azotemia, kidney function closely monitored. Baseline creatinine around 0.9. -Leukocytosis reactive secondary to myocardial infarction -hypertension -Hyperlipidemia -Tobacco abuse FULL CODE Hospital Course This is a pleasant 65 year old female who presented to the with complaints of chest pain and was diagnosed with an inferior wall STEMI and was taken for a cardiac catheterization and had stenting to the RCA. Patient was also started on Losartan and Metoprolol by cardiology for a mildly elevated blood pressure. Labs this admission show a WBC of 11, went up to 13.7, probably reactive to DC and catheterization. Creatinine was 1.25, improved to 1.2, follow up outpatient. Troponin was initially negative, trended upwards to 2.5, and 8.2. Echocardiogram was completed which showed an EF of 55 to 60%, with severe concentric left ventricular hypertrophy, and mild mitral and mild tricuspid regurgitation. Vitals on discharge include a BP of 141/79, heart rate of 72, afebrile, and 95% on room air. Patient was cleared by cardiology services for discharge today, and she will take dual antiplatelet therapy with plavix and aspirin for one year. Please see progress note dated 09/29/2021 for a review of systems and physical examination. Please see medication reconciliation for a list of current medications. Thank you for allowing us to participate in the care of this patient. Patient Condition at Discharge: Stable Plan - Discharge Summary Discharge Rx Participant: Yes New Discharge Prescriptions: New Aspirin 81 mg PO DAILY #30 tab Metoprolol Tartrate [Lopressor] 25 mg PO BID #60 tab Clopidogrel [Plavix] 75 mg PO DAILY #30 tab Losartan [Cozaar] 25 mg PO DAILY #30 tab Nicotine 14Mg/24Hr Patch [Habitrol] 1 patch TRANSDERM DAILY #7 patch Atorvastatin [Lipitor] 40 mg PO DAILY #30 tab Continue traZODone HCL [Desyrel] 50 mg PO HS Citalopram Hydrobromide [CeleXA] 40 mg PO HS Pregabalin [Lyrica] 75 mg PO HS Discharge Medication List Citalopram Hydrobromide [CeleXA] 40 mg PO HS 09/27/21 [History] Pregabalin [Lyrica] 75 mg PO HS 09/27/21 [History] traZODone HCL [Desyrel] 50 mg PO HS 09/27/21 [History] Aspirin 81 mg PO DAILY #30 tab 09/29/21 [Rx] Atorvastatin [Lipitor] 40 mg PO DAILY #30 tab 09/29/21 [Rx] Clopidogrel [Plavix] 75 mg PO DAILY #30 tab 09/29/21 [Rx] Losartan [Cozaar] 25 mg PO DAILY #30 tab 09/29/21 [Rx] Metoprolol Tartrate [Lopressor] 25 mg PO BID #60 tab 09/29/21 [Rx] Nicotine 14Mg/24Hr Patch [Habitrol] 1 patch TRANSDERM DAILY #7 patch 09/29/21 [Rx] Follow up Appointment(s)/Referral(s): Topher Epstein MD [STAFF PHYSICIAN] - 1 Week (Office closed - please call to make an appointment) Gregory Chicas MD [Primary Care Provider] - 1-2 days (Office closed - please call to make an appointment) Ambulatory/Diagnostic Orders: Complete Blood Count w/diff [LAB.AMB] Time Frame: 2 Days, Location: None Selected Patient Instructions/Handouts: Heart Attack (DC) Discharge Disposition: HOME SELF-CARE
== END 2021-09-29 16:50 | disposition home or self-care (01) | DRG 247 ==
LOC: EC 19:29 → 2SICU 19:58 → 3SCARD 09-29 09:48
PROVIDERS: ADMIT Hospitalist; ATTEND Hospitalist
PROC: B2111ZZ Fluoroscopy of Multiple Coronary Arteries using Low Osmolar Contrast (ICD-10-PCS; 2021-09-27)
PROC: 027034Z Dilation of Coronary Artery, One Artery with Drug-eluting Intraluminal Device, Percutaneous Approach (ICD-10-PCS; principal; 2021-09-27 19:56)
PROC: 4A023N7 Measurement of Cardiac Sampling and Pressure, Left Heart, Percutaneous Approach (ICD-10-PCS; 2021-09-27 19:56)
DX: I21.19 ST elevation (STEMI) myocardial infarction involving other coronary artery of inferior wall (principal); E87.2 Acidosis; N17.9 Acute kidney failure, unspecified; D72.829 Elevated white blood cell count, unspecified; E78.5 Hyperlipidemia, unspecified; E87.8 Other disorders of electrolyte and fluid balance, not elsewhere classified; F17.200 Nicotine dependence, unspecified, uncomplicated; F32.9 Major depressive disorder, single episode, unspecified; F41.9 Anxiety disorder, unspecified; I25.10 Atherosclerotic heart disease of native coronary artery without angina pectoris; I11.9 Hypertensive heart disease without heart failure; J44.9 Chronic obstructive pulmonary disease, unspecified; M79.7 Fibromyalgia; Z82.49 Family history of ischemic heart disease and other diseases of the circulatory system
CPT/HCPCS: 36415; 71045; 80048; 80053; 83735; 84484; 85025; 85610; 85730; 93005; 93306; 93458; 96374; 96375; 99285

== ENCOUNTER 2023-09-24 02:02 | Emergency (ER) | payer MEDICARE ==
[2023-09-24 02:14] VITALS: RESP 18
[2023-09-24 02:15] LABS: Glucose,Whole Blood 106 mg/dL (70-110)
[2023-09-24] MEDS ORDERED: SODIUM CHLORIDE 0.9% 500 ML 500 ML IV STA (02:35)
--- NOTE | 2023-09-24 02:38 | ED ---
General Adult HPI - General Chief complaint: Syncope Stated complaint: Hypotension Time Seen by Provider: 09/24/23 02:25 Source: patient, family, EMS Mode of arrival: EMS Limitations: no limitations - History of Present Illness Initial comments: This patient is 67-year-old woman presents to have evaluation after near syncopal/syncopal episode. Patient states she was at home. States her . Arouse her awakened. HEENT: EMS. They reportedly found her blood pressure is normal and recommended she be seen here. Patient states "I feel fine." She states she would like to go back home. See the review of systems -: minutes(s) Severity scale (1-10): 0 Improves with: none Worsens with: none Associated Symptoms: denies other symptoms Treatments Prior to Arrival: none - Related Data Previous Rx's Medication Instructions Recorded HYDROcodone/APAP 7.5-325MG [[place] 1 tab PO Q4H PRN #18 tab 01/28/23 7.5-325] Allergies Allergy/AdvReac Type Severity Reaction Status Date / Time Penicillins AdvReac See comment Verified 01/28/23 15:57 Review of Systems ROS Statement: Those systems with pertinent positive or pertinent negative responses have been documented in the HPI. ROS Other: All systems not noted in ROS Statement are negative. Constitutional: Denies: fever, weakness Eyes: Denies: vision change ENT: Denies: congestion Respiratory: Denies: cough, dyspnea Cardiovascular: Reports: syncope. Denies: chest pain, palpitations, edema Gastrointestinal: Denies: abdominal pain, nausea, vomiting, diarrhea, constipation Genitourinary: Denies: dysuria, hematuria Musculoskeletal: Denies: back pain Skin: Denies: rash Neurological: Denies: headache, weakness, numbness Past Medical History Past Medical History: Fibromyalgia, Myocardial Infarction ([place]), Osteoarthritis (OA) Additional Past Medical History / Comment(s): arthritis History of Any Multi-Drug Resistant Organisms: None Reported Additional Past Surgical History / Comment(s): neck surgery Past Anesthesia/Blood Transfusion Reactions: No Reported Reaction Past Psychological History: Anxiety, Depression Smoking Status: Current every day smoker Past Alcohol Use History: None Reported, Rare Past Drug Use History: Marijuana - Past Family History Mother History Unknown: Yes Family Medical History: Coronary Artery Disease (CAD) Father History Unknown: Yes Family Medical History: Myocardial Infarction ([place]) General Exam Limitations: no limitations General appearance: alert, in no apparent distress Head exam: Present: atraumatic, normocephalic Eye exam: Present: normal appearance. Absent: scleral icterus, conjunctival injection, nystagmus Neck exam: Present: normal inspection, full ROM Respiratory exam: Present: normal lung sounds bilaterally. Absent: respiratory distress, wheezes, rales, rhonchi, stridor Cardiovascular Exam: Present: regular rate, normal rhythm, normal heart sounds. Absent: systolic murmur, diastolic murmur, rubs, gallop GI/Abdominal exam: Present: soft. Absent: distended, tenderness, guarding, rebound, rigid, mass Extremities exam: Present: normal inspection, normal capillary refill. Absent: pedal edema, calf tenderness Back exam: Present: normal inspection. Absent: CVA tenderness (R), CVA tenderness (L) Neurological exam: Present: alert, oriented X3, CN II-XII intact. Absent: motor sensory deficit Skin exam: Present: warm, dry, intact, normal color. Absent: rash Course Vital Signs 09/24/23 09/24/23 02:09 04:00 Temperature 98.7 F 97.6 F Pulse Rate 73 66 Respiratory 18 18 Rate Blood Pressure 101/73 115/79 O2 Sat by Pulse 98 97 Oximetry EKG Findings - EKG Results: EKG: interpreted by MELISSA, sinus rhythm (Rate 75 bpm), normal axis, normal ST/T - Blocks, [place], Hypertrophy, ST Abn: QRS axis and voltage: low voltage (<0.5 MV total QRS and <1.0 MV in each precordial lead) Medical Decision Making - Medical Decision Making The patient had chest x-ray which I interpreted as negative for acute infiltrate, congestive heart failure, pneumothorax Was pt. sent in by a medical professional or institution (, PA, BROACH GRINDER, urgent care, hospital, or [facility]...) When possible be specific @ -[No] Did you speak to anyone other than the patient for history (EMS, parent, family, police, friend...)? What history was obtained from this source @ -[No] Did you review nursing and triage notes (agree or disagree)? Why? @ -[I reviewed and agree with nursing and triage notes] Were old charts reviewed (outside hosp., previous admission, EMS record, old EKG, old radiological studies, urgent care reports/EKG's, [facility] records)? Report findings @ -[No old charts were reviewed] Differential Diagnosis (chest pain, altered mental status, abdominal pain women, abdominal pain men, vaginal bleeding, weakness, fever, dyspnea, syncope, headache, dizziness, GI bleed, back pain, seizure, CVA, palpatations, mental health, musculoskeletal)? @ -[Differential Syncope: Valvular disease, hypertrophic cardiomyopathy, pulmonary embolism, tamponade, tachycardia, bradycardia, [place], hypovolemia, hemorrhage, dissection, anemia, intracranial hemorrhage, seizure, hypoglycemia, carbon monoxide poisoning, this is not meant to be an all-inclusive list. EKG interpreted by me (3pts min.). @ -[I interpreted As above] X-rays interpreted by me (1pt min.). @ -[I interpreted as above CT interpreted by me (1pt min.). @ -[None done] U/S interpreted by me (1pt. min.). @ -[None done] What testing was considered but not performed or refused? (CT, X-rays, U/S, labs)? Why? @ -[None] What meds were considered but not given or refused? Why? @ -[None] Did you discuss the management of the patient with other professionals (professionals i.e. , PA, BROACH GRINDER, lab, RT, psych nurse, high school social studies teacher, joint special operations, teacher, juvenile probation officer, supportive employment case manager)? Give summary @ -[No] Was smoking cessation discussed for >3mins.? @ -[No] Was critical care preformed (if so, how long)? @ -[No] Were there social determinants of health that impacted care today? How? (Ho melessness, low income, unemployed, alcoholism, drug addiction, transportation, low edu. Level, literacy, decrease access to med. care, fpc, rehab)? @ -[No] Was there de-escalation of care discussed even if they declined (Discuss DNR or withdrawal of care, Hospice)? DNR status @ -[No] What co-morbidities impacted this encounter? (DM, HTN, Smoking, COPD, CAD, Cancer, CVA, ARF, Chemo, Hep., AIDS, mental health diagnosis, sleep apnea, morbid obesity)? @ -[None] Was patient admitted / discharged? Hospital course, mention meds given and route, prescriptions, significant lab abnormalities, going to OR and other pertinent info. @ -[Patient is 67-year-old woman after her syncopal episode. She feels well and would like to go home. We did discuss admission for telemetry monitoring but she would like to go home. Discussed return parameters and follow-up Undiagnosed new problem with uncertain prognosis? @ -[No] Drug Therapy requiring intensive monitoring for toxicity (Heparin, Nitro, Insulin, Cardizem)? @ -[No] Were any procedures done? @ -[No] Diagnosis/symptom? @ -[Acute syncopal episode Acute, or Chronic, or Acute on Chronic? @ -[Acute Uncomplicated (without systemic symptoms) or Complicated (systemic symptoms)? @ -[Uncomplicated Side effects of treatment? @ -[No] Exacerbation, Progression, or Severe Exacerbation? @ -[No] Poses a threat to life or bodily function? How? (Chest pain, [place], [place], pneumonia, PE, COPD, DKA, ARF, appy, cholecystitis, CVA, Diverticulitis, Homicidal, Suicidal, threat to staff... and all critical care pts) @ -[No] - Lab Data Result diagrams: 09/24/23 02:39 09/24/23 02:39 Lab Results 09/24/23 09/24/23 09/24/23 Range/Units 02:13 02:39 02:39 WBC 10.9 H (3.8-10.6) k/uL RBC 4.31 (3.80-5.40) m/uL Hgb 13.4 (11.4-16.0) gm/dL Hct 39.9 (34.0-46.0) % MCV 92.5 (80.0-100.0) fL MCH 31.0 (25.0-35.0) pg MCHC 33.5 (31.0-37.0) g/dL RDW 13.1 (11.5-15.5) % Plt Count 222 (150-450) k/uL MPV 8.7 Neutrophils % 50 % Lymphocytes % 40 % Monocytes % 6 % Eosinophils % 1 % Basophils % 1 % Neutrophils # 5.5 (1.3-7.7) k/uL Lymphocytes # 4.3 (1.0-4.8) k/uL Monocytes # 0.6 (0-1.0) k/uL Eosinophils # 0.1 (0-0.7) k/uL Basophils # 0.1 (0-0.2) k/uL Sodium 140 (137-145) mmol/L Potassium 3.7 (3.5-5.1) mmol/L Chloride 107 (98-107) mmol/L Carbon Dioxide 23 (22-30) mmol/L Anion Gap 10 mmol/L BUN 27 H (7-17) mg/dL Creatinine 1.08 H (0.52-1.04) mg/dL Est GFR (CKD-EPI)AfAm 62 (>60 ml/min/1.73 sqM) Est GFR (CKD-EPI)NonAf 53 (>60 ml/min/1.73 sqM) Glucose 97 (74-99) mg/dL POC Glucose (mg/dL) 106 (70-110) mg/dL POC Glu Door Manager ID Darrick Campbell Calcium 9.5 (8.4-10.2) mg/dL Total Bilirubin 0.2 (0.2-1.3) mg/dL AST 29 (14-36) U/L ALT 22 (4-34) U/L Alkaline Phosphatase 76 (38-126) U/L Troponin I (0.000-0.034) ng/mL Total Protein 6.4 (6.3-8.2) g/dL Albumin 3.9 (3.5-5.0) g/dL 09/24/23 Range/Units 02:39 WBC (3.8-10.6) k/uL RBC (3.80-5.40) m/uL Hgb (11.4-16.0) gm/dL Hct (34.0-46.0) % MCV (80.0-100.0) fL MCH (25.0-35.0) pg MCHC (31.0-37.0) g/dL RDW (11.5-15.5) % Plt Count (150-450) k/uL MPV Neutrophils % % Lymphocytes % % Monocytes % % Eosinophils % % Basophils % % Neutrophils # (1.3-7.7) k/uL Lymphocytes # (1.0-4.8) k/uL Monocytes # (0-1.0) k/uL Eosinophils # (0-0.7) k/uL Basophils # (0-0.2) k/uL Sodium (137-145) mmol/L Potassium (3.5-5.1) mmol/L Chloride (98-107) mmol/L Carbon Dioxide (22-30) mmol/L Anion Gap mmol/L BUN (7-17) mg/dL Creatinine (0.52-1.04) mg/dL Est GFR (CKD-EPI)AfAm (>60 ml/min/1.73 sqM) Est GFR (CKD-EPI)NonAf (>60 ml/min/1.73 sqM) Glucose (74-99) mg/dL POC Glucose (mg/dL) (70-110) mg/dL POC Glu Door Manager ID Calcium (8.4-10.2) mg/dL Total Bilirubin (0.2-1.3) mg/dL AST (14-36) U/L ALT (4-34) U/L Alkaline Phosphatase (38-126) U/L Troponin I <0.012 (0.000-0.034) ng/mL Total Protein (6.3-8.2) g/dL Albumin (3.5-5.0) g/dL Disposition Clinical Impression: Syncope Disposition: HOME SELF-CARE Condition: Good Instructions (If sedation given, give patient instructions): Syncope (DC) Is patient prescribed a controlled substance at d/c from ED?: No Referrals: None,Stated [Primary Care Provider] - 1-2 days
[2023-09-24 03:20] LABS: ALT 22 U/L (4-34); AST 29 U/L (14-36); African American GFR (CKD) 62 (>60 ml/min/1.73 sqM); Albumin 3.9 g/dL (3.5-5.0); Alkaline Phosphatase 76 U/L (38-126); Anion Gap 10 mmol/L; Blood Urea Nitrogen 27 mg/dL (7-17); Calcium 9.5 mg/dL (8.4-10.2); Carbon Dioxide 23 mmol/L (22-30); Chloride 107 mmol/L (98-107); Glucose 97 mg/dL (74-99); Non-African American GFR(CKD) 53 (>60 ml/min/1.73 sqM); Potassium 3.7 mmol/L (3.5-5.1); Sodium 140 mmol/L (137-145); Total Bilirubin 0.2 mg/dL (0.2-1.3); Total Protein 6.4 g/dL (6.3-8.2)
[2023-09-24 03:25] LABS: Basophils # (A) 0.1 k/uL (0-0.2); Basophils % (A) 1 %; Eosinophils # (A) 0.1 k/uL (0-0.7); Eosinophils % (A) 1 %; HCT 39.9 % (34.0-46.0); HGB 13.4 gm/dL (11.4-16.0); Lymphocytes # (A) 4.3 k/uL (1.0-4.8); Lymphocytes % (A) 40 %; MCHC 33.5 g/dL (31.0-37.0); MCV 92.5 fL (80.0-100.0); Mean Platelet Volume 8.7; Monocytes # (A) 0.6 k/uL (0-1.0); Monocytes % (A) 6 %; Neutrophils # (A) 5.5 k/uL (1.3-7.7); Neutrophils % (A) 50 %; Platelet Count 222 k/uL (150-450); RBC 4.31 m/uL (3.80-5.40); RDW 13.1 % (11.5-15.5); WBC 10.9 k/uL (3.8-10.6)
--- NOTE | 2023-09-24 03:48 | XR ---
EXAM: XR Chest, 2 Views CLINICAL HISTORY: syncope TECHNIQUE: Frontal and lateral views of the chest. COMPARISON: No relevant prior studies available. FINDINGS: Lungs: Unremarkable. No infiltration, atelectasis or mass density. Pleural space: Unremarkable. No pneumothorax. No pleural fluid. Heart: Borderline cardiomegaly. Mediastinum: Unremarkable. Bones/joints: Unremarkable. No acute abnormalities. IMPRESSION: No acute findings in the chest.
[2023-09-24 04:11] VITALS: BP 115/79; PULSE 66; TEMP 97.6
== END 2023-09-24 04:01 | disposition home or self-care (01) ==
LOC: EC 02:02
DX: R55 Syncope and collapse (principal); I25.2 Old myocardial infarction; F17.200 Nicotine dependence, unspecified, uncomplicated; Z88.0 Allergy status to penicillin
CPT/HCPCS: 36415; 71046; 80053; 84484; 85025; 93005; 96360; 99285

== ENCOUNTER 2025-02-11 10:04 | Emergency (ER) | payer MEDICAID, MEDICARE ==
[2025-02-11 10:14] VITALS: BP 146/87; PULSE 111; RESP 18; TEMP 98.1
[2025-02-11 11:38] LABS: ALT 19 U/L (4-34); AST 27 U/L (14-36); African American GFR (CKD) 37 (>60 ml/min/1.73 sqM); Albumin 4.7 g/dL (3.5-5.0); Alkaline Phosphatase 89 U/L (38-126); Anion Gap 12 mmol/L; Blood Urea Nitrogen 24 mg/dL (7-17); Calcium 10.5 mg/dL (8.4-10.2); Carbon Dioxide 20 mmol/L (22-30); Chloride 107 mmol/L (98-107); Glucose 114 mg/dL (74-99); Non-African American GFR(CKD) 32 (>60 ml/min/1.73 sqM); Potassium 4.2 mmol/L (3.5-5.1); Sodium 139 mmol/L (137-145); Total Bilirubin 0.7 mg/dL (0.2-1.3); Total Protein 7.7 g/dL (6.3-8.2)
[2025-02-11] MEDS: IBUPROFEN 600 MG TAB PO STA (11:38)
[2025-02-11 12:00] LABS: Basophils % (A) 0 %; Eosinophils % (A) 0 %; HCT 39.9 % (34.0-46.0); HGB 13.4 gm/dL (11.4-16.0); Lymphocytes # (A) 1.8 k/uL (1.0-4.8); Lymphocytes % (A) 15 %; MCH 30.5 pg (25.0-35.0); MCHC 33.5 g/dL (31.0-37.0); MCV 90.9 fL (80.0-100.0); Mean Platelet Volume 7.2; Monocytes # (A) 0.5 k/uL (0-1.0); Monocytes % (A) 4 %; Neutrophils # (A) 9.7 k/uL (1.3-7.7); Neutrophils % (A) 79 %; Platelet Count 262 k/uL (150-450); RBC 4.38 m/uL (3.80-5.40); RDW 13.8 % (11.5-15.5); WBC 12.2 k/uL (3.8-10.6)
--- NOTE | 2025-02-11 12:19 | ED ---
Psych HPI - General Chief Complaint: Psychiatric Symptoms Stated Complaint: Petition Time Seen by Provider: 02/11/25 10:15 Source: patient, police, RN notes reviewed Mode of arrival: ambulatory Limitations: no limitations - History of Present Illness Initial Comments: 69-year-old female presents emergency department with police for psychiatric evaluation. Patient called police because she believed people return breaking her house and then she was seeing people outside of her house. Patient is having bizarre delusional thoughts and behavior. Patient reported grabbed her gun and she states that she wanted to make sure her safety was on and discharged her firearm to her couch of her house. Patient denies any suicidal homicidal denies any history of psychiatric disorders patient states only medications that he takes is Aleve and is currently seeing Dr. Bui for primary care physician. Denies alcohol abuse - Related Data Home Medications Medication Instructions Recorded Confirmed No Known Home Medications 02/11/25 02/11/25 Allergies Allergy/AdvReac Type Severity Reaction Status Date / Time Penicillins AdvReac See comment Verified 02/11/25 11:28 Review of Systems ROS Statement: Those systems with pertinent positive or pertinent negative responses have been documented in the HPI. ROS Other: All systems not noted in ROS Statement are negative. Past Medical History Past Medical History: Fibromyalgia, Myocardial Infarction ([place]), Osteoarthritis (OA) Additional Past Medical History / Comment(s): arthritis History of Any Multi-Drug Resistant Organisms: None Reported Additional Past Surgical History / Comment(s): neck surgery, broken hip surgery 01/2025 Past Anesthesia/Blood Transfusion Reactions: No Reported Reaction Past Psychological History: Anxiety, Depression Smoking Status: Current every day smoker Past Alcohol Use History: None Reported, Rare Past Drug Use History: Marijuana - Past Family History Mother History Unknown: Yes Family Medical History: Coronary Artery Disease (CAD) Father History Unknown: Yes Family Medical History: Myocardial Infarction ([place]) General Exam Limitations: no limitations General appearance: alert, in no apparent distress Head exam: Present: atraumatic, normocephalic, normal inspection Eye exam: Present: normal appearance, PERRL, EOMI. Absent: scleral icterus, conjunctival injection, periorbital swelling ENT exam: Present: normal exam, normal oropharynx, mucous membranes moist Neck exam: Present: normal inspection, full ROM. Absent: tenderness, meningismus, lymphadenopathy Respiratory exam: Present: normal lung sounds bilaterally. Absent: respiratory distress, wheezes, rales, rhonchi, stridor Cardiovascular Exam: Present: normal rhythm, tachycardia, normal heart sounds. Absent: systolic murmur, diastolic murmur, rubs, gallop, clicks GI/Abdominal exam: Present: soft, normal bowel sounds. Absent: distended, tenderness, guarding, rebound, rigid Neurological exam: Present: alert, oriented X3 Skin exam: Present: warm, dry, intact, normal color. Absent: rash Course Vital Signs 02/11/25 10:08 Temperature 98.1 F Pulse Rate 111 H Respiratory 18 Rate Blood Pressure 146/87 O2 Sat by Pulse 95 Oximetry Medical Decision Making - Medical Decision Making Was pt. sent in by a medical professional or institution (, PA, EQUALIZING SAW OPERATOR, urgent care, hospital, or correction...) When possible be specific @ -No Did you speak to anyone other than the patient for history (EMS, parent, family, police, friend...)? What history was obtained from this source @ -Hides And Skins Colorer who brought the patient and explained situation and current complaint. Did you review nursing and triage notes (agree or disagree)? Why? @ -I reviewed and agree with nursing and triage notes Were old charts reviewed (outside hosp., previous admission, EMS record, old EKG, old radiological studies, urgent care reports/EKG's, correction records)? Report findings @ -No old charts were reviewed Differential Diagnosis (chest pain, altered mental status, abdominal pain women, abdominal pain men, vaginal bleeding, weakness, fever, dyspnea, syncope, headache, dizziness, GI bleed, back pain, seizure, CVA, palpatations, mental health, musculoskeletal)? @ -Differential Mental Health Depression, anxiety, bipolar, psychosis, schizophrenia, borderline personality, situational depression, adjustment disorder, behavioral disorder, brain tumor, malingering, substance abuse, encephalopathy, medication reaction, dementia, hypothyroidism, degenerative neurologic disorder, lupus.... This is not meant to be all-inclusive list EKG interpreted by me (3pts min.). @ -None X-rays interpreted by me (1pt min.). @ -None done CT interpreted by me (1pt min.). @ -None done U/S interpreted by me (1pt. min.). @ -None done What testing was considered but not performed or refused? (CT, X-rays, U/S, labs)? Why? @ -None What meds were considered but not given or refused? Why? @ -None Did you discuss the management of the patient with other professionals (professionals i.e. , PA, EQUALIZING SAW OPERATOR, lab, RT, psych nurse, rn social work, tax lawyer, teacher, correctional probation officer, medical case manager)? Give summary @ -EPS evaluated patient discussed case with psychiatrist recommends outpatient treatment. Was smoking cessation discussed for >3mins.? @ -No Was critical care preformed (if so, how long)? @ -No Were there social determinants of health that impacted care today? How? (Homelessness, low income, unemployed, alcoholism, drug addiction, transportation, low edu. Level, literacy, decrease access to med. care, halfway, rehab)? @ -No Was there de-escalation of care discussed even if they declined (Discuss DNR or withdrawal of care, Hospice)? DNR status @ -No What co-morbidities impacted this encounter? (DM, HTN, Smoking, COPD, CAD, Cancer, CVA, ARF, Chemo, Hep., AIDS, mental health diagnosis, sleep apnea, morbid obesity)? @ -None Was patient admitted / discharged? Hospital course, mention meds given and route, prescriptions, significant lab abnormalities, going to OR and other pertinent info. @ -Discharge patient presented for hallucination acute psychosis patient has methamphetamines patient recently used patient is nonsuicidal patient is evaluated by psychiatric services and discharge. Undiagnosed new problem with uncertain prognosis? @ -No Drug Therapy requiring intensive monitoring for toxicity (Heparin, Nitro, Insulin, Cardizem)? @ -No Were any procedures done? @ -No Diagnosis/symptom? @ -Methamphetamine use acute psychosis Acute, or Chronic, or Acute on Chronic? @ -Acute Uncomplicated (without systemic symptoms) or Complicated (systemic symptoms)? @ -Uncomplicated Side effects of treatment? @ -No Exacerbation, Progression, or Severe Exacerbation? @ -No Poses a threat to life or bodily function? How? (Chest pain, [place], [place], pneumonia, PE, COPD, DKA, ARF, appy, cholecystitis, CVA, Diverticulitis, Homicidal, Suicidal, threat to staff... and all critical care pts) @ -No - Lab Data Result diagrams: 02/11/25 11:16 02/11/25 11:16 Lab Results 02/11/25 02/11/25 02/11/25 Range/Units 11:16 11:16 13:04 WBC 12.2 H (3.8-10.6) k/uL RBC 4.38 (3.80-5.40) m/uL Hgb 13.4 (11.4-16.0) gm/dL Hct 39.9 (34.0-46.0) % MCV 90.9 (80.0-100.0) fL MCH 30.5 (25.0-35.0) pg MCHC 33.5 (31.0-37.0) g/dL RDW 13.8 (11.5-15.5) % Plt Count 262 (150-450) k/uL MPV 7.2 Neutrophils % 79 % Lymphocytes % 15 % Monocytes % 4 % Eosinophils % 0 % Basophils % 0 % Neutrophils # 9.7 H (1.3-7.7) k/uL Lymphocytes # 1.8 (1.0-4.8) k/uL Monocytes # 0.5 (0-1.0) k/uL Eosinophils # 0.0 (0-0.7) k/uL Basophils # 0.0 (0-0.2) k/uL Sodium 139 (137-145) mmol/L Potassium 4.2 (3.5-5.1) mmol/L Chloride 107 (98-107) mmol/L Carbon Dioxide 20 L (22-30) mmol/L Anion Gap 12 mmol/L BUN 24 H (7-17) mg/dL Creatinine 1.63 H (0.52-1.04) mg/dL Est GFR (CKD-EPI)AfAm 37 (>60 ml/min/1.73 sqM) Est GFR (CKD-EPI)NonAf 32 (>60 ml/min/1.73 sqM) Glucose 114 H (74-99) mg/dL Calcium 10.5 H (8.4-10.2) mg/dL Total Bilirubin 0.7 (0.2-1.3) mg/dL AST 27 (14-36) U/L ALT 19 (4-34) U/L Alkaline Phosphatase 89 (38-126) U/L Total Protein 7.7 (6.3-8.2) g/dL Albumin 4.7 (3.5-5.0) g/dL Urine Color Yellow Urine Appearance Clear (Clear) Urine pH 5.5 (5.0-8.0) Ur Specific [place] 1.025 (1.001-1.035) Urine Protein 1+ H (Negative) Urine Glucose (UA) Negative (Negative) Urine Ketones Negative (Negative) Urine Blood Negative (Negative) Urine Nitrite Negative (Negative) Urine Bilirubin Negative (Negative) Urine Urobilinogen <2.0 (<2.0) mg/dL Ur Leukocyte Esterase Negative (Negative) Urine RBC 2 (0-5) /hpf Urine WBC 4 (0-5) /hpf Urine Mucus Rare H (None) /hpf Urine Opiates Screen Not Detected (NotDetected) Ur Oxycodone Screen Not Detected (NotDetected) Urine Methadone Screen Not Detected (NotDetected) Ur Barbiturates Screen Not Detected (NotDetected) U Tricyclic Antidepress Not Detected (NotDetected) Ur Phencyclidine Scrn Not Detected (NotDetected) Ur Amphetamines Screen Detected H (NotDetected) U Methamphetamines Scrn Detected H (NotDetected) U Benzodiazepines Scrn Detected H (NotDetected) Urine Cocaine Screen Not Detected (NotDetected) U Marijuana (THC) Screen Detected H (NotDetected) Disposition Clinical Impression: Psychosis, Methamphetamine use Disposition: HOME SELF-CARE Condition: Stable Additional Instructions: Please return to the Emergency Department if symptoms worsen or any other concerns. Is patient prescribed a controlled substance at d/c from ED?: No Referrals: Alexsander Bui MD [Primary Care Provider] - 1-2 days Time of Disposition: 14:45
[2025-02-11 13:19] LABS: Appearance,Urine Clear (Clear); Bilirubin,Urine Negative (Negative); Blood,Urine Negative (Negative); Color,Urine Yellow; Glucose,Urine (UA) Negative (Negative); Ketones,Urine Negative (Negative); Leukocyte Esterase,Urine Negative (Negative); Mucus,Urine Rare /hpf; Nitrite,Urine Negative (Negative); PH, Urine 5.5 (5.0-8.0); Protein,Urine 1+ (Negative); RBC,Urine 2 /hpf (0-5); Specific Gravity,Urine 1.025 (1.001-1.035); Urobilinogen,Urine <2.0 mg/dL (<2.0); WBC,Urine 4 /hpf (0-5)
[2025-02-11 13:32] LABS: Amphetamine Screen,Urine Detected (NotDetected); Barbiturate Screen,Urine Not Detected (NotDetected); Benzodiazepines Screen,Urine Detected (NotDetected); Cocaine Screen,Urine Not Detected (NotDetected); Methadone Screen, Urine Not Detected (NotDetected); Opiate Screen,Urine Not Detected (NotDetected); Oxycodone Screen, Urine Not Detected (NotDetected); Phencyclidine Screen,Urine Not Detected (NotDetected); Tricyclic Antidepressant,Urine Not Detected (NotDetected); Urn Cannabinoid Scrn Detected (NotDetected)
== END 2025-02-11 15:02 | disposition home or self-care (01) ==
LOC: EC 10:04
DX: F19.90 Other psychoactive substance use, unspecified, uncomplicated (principal); Z88.0 Allergy status to penicillin; F17.200 Nicotine dependence, unspecified, uncomplicated
CPT/HCPCS: 36415; 80053; 80306; 81001; 82075; 85025; 99285